=== PATIENT | male | born 1995 | race Caucasian/White ===

== ENCOUNTER 2016-11-28 14:56 | Emergency (ER) | payer SELFPAY ==
[~2016-11-28] VITALS: Ht 162.6 cm; Wt 79.0 kg
[~2016-11-28 14:56] MED LIST: ABILIFY5 MG PO; ADVIL100 M1 PO; BENZACLIN GEL 550 GM; CATAPRES0.1 MG; CATAPRES0.3 MG; DICLOFENAC POTA50 M1 PO; IBUPROFEN800 MG PO; MELATONIN1 MG PO; PROVENTIL HFA6.7 GM IH; RISPERDAL2 MG PO; STRATTERA80 MG PO
[2016-11-28] MEDS ORDERED: ADVIL200 M3 PO (15:09)
[2016-11-28] MEDS ORDERED: JOINT HEALTH T1 EACH PO (15:09)
[2016-11-28] MEDS ORDERED: VIBRAMYCIN100 M1 PO (15:31)
== END 2016-11-28 16:04 ==
LOC: EDMED 14:56
PROC: 0H9LXZX Drainage of Left Lower Leg Skin, External Approach, Diagnostic (ICD-10-PCS; principal; 2016-11-28)
DX: L02.414 Cutaneous abscess of left upper limb (principal); Z87.891 Personal history of nicotine dependence